=== PATIENT | female | born 2000 | race Caucasian/White ===

== ENCOUNTER 2023-12-12 23:56 | Emergency (ER) | payer BC, SELFPAY ==
[2023-12-13 00:06] VITALS: BP 127/86; PULSE 121; RESP 20; TEMP 37; O2SAT 98
--- NOTE | 2023-12-13 00:22 | ED.GENADUL_ITS ---
HPI General Date/Time Provider Initiated Documentation: 12/13/23 00:09 . HPI Narrative: 23-year-old female with no significant past medical history presents today for evaluation of vomiting. Patient states that for the past 5 hours she has been vomiting nonstop. She has had nausea as well obviously. She denies any focal abdominal pain. She currently resides at [facility]. She denies any diarrhea. No new foods. She did drink some alcohol yesterday, roughly a sixpack per patient, but states that this is not overly atypical. No other complaints at this time. No other modifying factors. She denies any blood or hematemesis. Related Data Home Medications Medication Instructions Recorded Confirmed Unknown [No Known Home Meds] 12/13/23 12/13/23 Allergies Allergy/AdvReac Type Severity Reaction Status Date / Time No Known Allergies Allergy Unverified 12/13/23 00:13 General Stated Complaint: Nausea/Vomit/Diar VISHAL: 3 Review of Systems All systems reviewed & are unremarkable except as noted in HPI and below Exam Narrative Exam Narrative: 1.Const: Well-nourished, Well-developed, appearing stated age 2.Eyes: PERRL, no conjunctival injection, and symmetrical lids. 3.ENT: Atraumatic external nose and ears. Moist MM. Neck: Symmetric, trachea midline, No thyromegaly. 4.CVS: +S1/S2, No murmurs or gallops. Peripheral pulses 2+ and equal in all extremities. Brisk capillary refill in all extremities. 5.RESP: Unlabored respiratory effort. Clear to auscultation bilaterally. No wheezes rales or rhonchi 6.GI: Soft, Nontender/Nondistended, No hepatosplenomegaly. No guarding or rebound. No pain to McBurney's point, negative Rosenbaum sign. 7.MSK: Normocephalic/Atraumatic, Extremities w/o deformity or ttp No cyanosis or clubbing, Normal movement of all extremities 8.Skin: Warm, Dry. No rashes or lesions. 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 Sensation grossly intact, no focal neurologic deficits. 10.Psych: (AAO) x3. Appropriate mood and affect Course Vital Signs Vital signs: Vital Signs Temperature 37.0 C 12/13/23 00:06 Pulse 121 H 12/13/23 00:06 Respiratory Rate 20 12/13/23 00:06 Blood Pressure 127/86 12/13/23 00:06 Pulse Oximetry 98 12/13/23 00:06 Temperature 37.0 C 12/13/23 00:06 Temperature Source Oral 12/13/23 00:06 Pulse 121 H 12/13/23 00:06 Respiratory Rate 20 12/13/23 00:06 Respiratory Effort Normal 12/13/23 00:08 Blood Pressure 127/86 12/13/23 00:06 Pulse Oximetry 98 12/13/23 00:06 Medical Decision Making 23-year-old female with no significant past medical history presents today for evaluation of vomiting. Patient states that for the past 5 hours she has been vomiting nonstop. She has had nausea as well obviously. She denies any focal abdominal pain. She currently resides at [facility]. She denies any diarrhea. No new foods. She did drink some alcohol yesterday, roughly a sixpack per patient, but states that this is not overly atypical. No other complaints at this time. No other modifying factors. She denies any blood or hematemesis. Exam demonstrates well-appearing female who is actively nauseous and vomiting. No focal abdominal pain on exam, no signs of an acute surgical abdomen. Concern is for gastroenteritis, likely viral in origin. Significant increase in community episodes as of late have been noted. However we will evaluate for pancreatitis, , will rehydrate with a liter normal saline, give Zofran, monitor closely and reassess. No indication for emergent CT scan at this time. 1:41 AM Laboratory workup has returned, mild white count, no bandemia. Electrolytes normal, renal function good, no transaminitis. Lipase normal. On reassessment after fluids patient is feeling much better after the Zofran. Repeat abdominal exam shows no signs of an acute surgical abdomen. Patient feels much better. She did tolerate p.o. trial without any vomiting. Discussed continued observation versus discharge and patient is requesting discharge. Will give Zofran to go, recommend liquid diet for the next 24 to 48 hours. Suspect viral gastroenteritis. Discussed red flags which to return. No indication on repeat exam for emergent CT imaging. Patient has no abdominal pain or tenderness or evidence of an acute surgical abdomen. Discussed red flags which to return. I have extensively reviewed the treatment plan and discharge instructions with the patient. I have addressed all patient concerns at this time. The patient was made aware of what symptoms to monitor for that would warrant a return to the emergency department. Discussed the plan with the patient, they demonstrate verbal understanding and agreement with our assessment and plan at this time. The documentation in this chart was dictated using [employer] dictation software. Please excuse any dictation errors. Quality:SDOH Health Related Social Needs: No Data to Display PFSH All Active Problems (Updated 12/13/23 @ 01:41 by Max Claire DO) Vomiting (Acute) Social History Smoking risk assessment performed?: No Discharge Plan Disposition Patient Disposition: Home Discharge Details Chief Complaint: Nausea/Vomit/Diar Clinical Impression: Vomiting Primary Care Provider: [place],Local ED Provider: Max Claire Home Meds and New Rx's Prescriptions: No Action No Known Home Meds Discharge Instructions Instructions: Ondansetron (By mouth), Acute Nausea and Vomiting (ED) Additional Instructions: At this time your laboratory workup is returned reassuring. There is no evidence of pancreatitis, your electrolytes are stable. I suspect there is a viral illness causing your nausea and vomiting. Please take the Zofran as needed. For the next 12 to 24 hours please stick with a liquid diet with small frequent sips. After this you can gradually transition to a bland diet of crackers, rice, applesauce and fluids. If you notice any worsening of your symptoms, or any new symptoms such as vomiting, diarrhea, fever, chills, shortness of breath, chest pain, numbness, weakness, or fainting , please return immediately to the emergency department for reevaluation. Please follow up with your primary care provider as soon as possible for reassessment and reevaluation. As always, it was a pleasure participating in your medical care today.
[2023-12-13 00:28] LABS: Abs Immature Grans 0.04 10^3/uL (0.0-0.06); Absolute Basophil Count 0.05 10^3/uL (0.0-0.2); Absolute Eosinophil Count 0.03 10^3/uL (0.0-0.7); Absolute Lymphocyte Count 0.59 10^3/uL (1.2-3.4); Absolute Neutrophil Count 13.58 10^3/uL (1.2-6.7); Basophils % 0.3; Eosinophils % 0.2; HCT 43.9 % (36.0-46.0); HGB 14.8 g/dL (11.2-15.7); Immature Grans % 0.3; Lymphocytes % 3.9; MCHC 33.7 % (32.0-36.0); MCV 89 fL (80-95); MPV 9.6 fL (8.0-11.0); Monocytes % 5.7; Neutrophils % 89.6; Platelet Count 282 10^3/uL (130-400); RBC 4.94 10^6/uL (3.93-5.22); RDW 12.5 % (11.7-14.6); RDW-SD 41.1 fL; WBC 15.16 10^3/uL (4.4-10.8)
[2023-12-13 00:30] LABS: Absolute Monocyte Count 0.86 10^3/uL (0.1-0.8)
[2023-12-13 00:51] LABS: ALT 26 U/L (14-59); AST 14 U/L (15-37); Albumin 4.4 g/dL (3.4-5.0); Alkaline Phosphatase 68 U/L (46-116); Anion Gap 11.7 mmol/L (3-11); BUN 13 mg/dL (7-18); Bilirubin, Total 0.7 mg/dL (0.2-1.0); CO2 24.3 mmol/L (21.0-32.0); CREATININE 0.7 mg/dL (0.55-1.02); Chloride 103 mmol/L (98-107); Estimated GFR 126.11 (mL/min/1.73m2); Glucose 142 mg/dL (74-106); Lipase 13 U/L (16-77); Potassium 3.8 mmol/L (3.5-5.1); Sodium 139 mmol/L (136-145)
[2023-12-13] MEDS: Ondansetron 4 MG/2 ML VIAL IVP ×2 (01:00→01:49)
[2023-12-13] MEDS: Normal Saline 1,000 ML 1000 ML IV (01:00)
[2023-12-13] MEDS: Ondansetron O.D.T. 4 MG TABEF, 3 TABS/BTL PO (01:49)
== END 2023-12-13 01:51 | disposition home or self-care (01) ==
LOC: ER 12-13 02:00
PROVIDERS: Emergency Provider Student in an Organized Health Care Education/Training Program
DX: R11.2 Nausea with vomiting, unspecified (principal)
CPT/HCPCS: 80053; 81025; 83690; 99283; 85025; J2405